=== PATIENT | female | born 1970 | race Asian ===

== ENCOUNTER 2017-01-11 11:25 | Day surgery (SDC) | payer BC ==
[2016-12-30 11:32] VITALS: BMI 21.7
--- NOTE | 2017-01-03 11:10 | HP ---
Admitting History and Physical - Primary Care Physician PCP: Ramesh Darnell - Admission Chief Complaint: Left breast DCIS History of Present Illness: 45 year old premenapausal female who underwent a screening mammogram 11/2015 showing dense changes and calcifications left upper aspect. She underwent left breast stereotactic core 01/2016 showing low to intermediate DCIS. She delayed treatment for the past 6 mos. Breast MRI 09/2016 showed benign enhancing foci 6 month follow up bilaterally and left breast cancer. Bilaterally mammogram 11/2016 Biopsy marker LUOQ with previously calcifications no longer identified but biopsy proven DCIS. History Source: Patient Limitations to Obtaining History: No Limitations - Past Medical History ...LMP: 12/24/16 - Smoking History Smoking history: Never smoked - Alcohol/Substance Use Hx Alcohol Use: No Home Medications - Allergies Allergies/Adverse Reactions: Allergies Allergy/AdvReac Type Severity Reaction Status Date / Time Penicillins Allergy Hives Verified 12/30/16 11:32 - Home Medications Home Medications: Ambulatory Orders NK [No Known Home Medication] 12/30/16 Family Disease History - Family Disease History Family History: Unremarkable Physical Examination Constitutional: Yes: Well Nourished Breast(s): Yes: Other ( small B cup breasts symetrical,ligth scarring left upper outer quadrant , no palpable adnopathy) Problem List - Problems (1) Ductal carcinoma in situ (DCIS) of left breast Code(s): D05.12 - INTRADUCTAL CARCINOMA IN SITU OF LEFT BREAST Assessment/Plan Left breast wide excision mammogram needle localization
[2017-01-11] MEDS ORDERED: MIDAZOLAM HCL 2 MG/2 ML SINGLE DOSE VIAL ONE ×2 (13:59→15:15)
[2017-01-11] MEDS ORDERED: PROPOFOL 20 ML ONE ×2 (14:00→15:14)
[2017-01-11] MEDS ORDERED: LIDOCAINE HCL/PF 2% SDV 5ML VIAL ONE (14:00)
[2017-01-11] MEDS ORDERED: BUPIVACAINE HCL/PF 2.5 MG/ML - 30 ML VIAL IJ ONE (14:41)
[2017-01-11] MEDS ORDERED: LIDOCAINE HCL 1%, 10 MG/ML (50 mL VIAL) IJ ONE (15:02)
[2017-01-11] MEDS ORDERED: LIDOCAINE HCL 1%, 10 MG/ML (20ML VIAL) ONE (15:03)
[2017-01-11] MEDS ORDERED: KETOROLAC TROMETHAMINE 30 MG/1 ML VIAL IVPUSH PRN (15:39)
[2017-01-11] MEDS ORDERED: ONDANSETRON 4 MG/2 ML VIAL IVPUSH PRN (15:39)
[2017-01-11] MEDS ORDERED: BUPIVACAINE HCL/PF 0.25% (2.5MG/ML) 10 ML VIAL IJ ONE (15:41)
[2017-01-11] MEDS ORDERED: DEXTROSE 5%-0.45% SALINE 1,000 ML IV SCH (15:45)
[2017-01-11] MEDS ORDERED: oxyCODONE HCL 5 MG TABLET PO PRN (16:09)
[2017-01-11] MEDS ORDERED: LACTATED RINGERS SOLUTION 1,000 ML IV SCH (16:15)
[2017-01-11 17:46] VITALS: BP 101/60; PULSE 88; TEMP 98.5
--- NOTE | 2017-01-12 09:24 | OP ---
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 PROCEDURE PERFORMED: Left breast partial mastectomy with mammographic needle localization. PRIMARY SURGEON: Humberto Darnell MD AUTOMOTIVE ASSEMBLER: SANJEEV Caraballo ANESTHESIA: General laryngeal mask airway anesthesia. COMPLICATIONS: There were no complications. INDICATIONS: Briefly, the patient is a 45-year-old , premenopausal female of descent. She was found to have some calcifications in the upper outer aspect of the left breast on screening mammography in November 2015 and stereotactic biopsy performed on February 11, 2016, showed intermediate to low-grade DCIS, which was ER-WA positive. The patient was advised on surgery but refused at that time and was eventually seen by myself in the office on 2016. I had her repeat the mammography, which showed no further suspicious findings and the calcifications still had been completely removed. MRI showed no evidence of significant findings. The patient was advised to have a wide excision of the area of her previous stereotactic biopsy and eventually agreed. DESCRIPTION OF PROCEDURE: The patient was brought in for the procedure on January 11, 2017. She underwent the needle localization in Radiology and was brought to the holding area. In the holding area, site verification was made and informed consent was obtained. She was brought into the operating room and laid on the OR table in the supine position. Venodynes were placed on the lower extremities. She did not receive any antibiotics given the small nature of the excision. She was given general laryngeal mask airway anesthesia. The left breast was sterilely prepped and draped in the usual fashion, with the wire prepped in the field. No anais evaluation was performed, given the low-grade nature of the DCIS. One percent lidocaine was given around the needle localization in the upper outer aspect of the left breast, and a curvilinear incision was made in the upper outer aspect of the left breast. Dissection was undertaken around the needle localization, with the breast tissue completely removed from around the wire, with the wire intact in the middle of the specimen. The specimen was oriented with a long lateral suture and a short superior suture, and specimen radiograph showed removal of the clip in question. Hemostasis was achieved. At this point separate margins were taken on the superior, inferior, medial, lateral, deep and anterior aspects, with sutures marking the biopsy cavity sides. The specimens were all sent to Pathology with separate margins. Again, hemostasis was achieved. The wound was copiously irrigated. We then performed a 4 x 3-cm tissue-transfer closure, swinging the breast tissue and closing it primarily with 2-0 plain suture. The skin was then closed using interrupted 3-0 deep dermal Vicryl suture and a running 4-0 subcuticular Biosyn suture. Dermabond was placed over the wound, with a compressive dressing placed over this. The patient tolerated the procedure well, without difficulty. Estimated blood loss was minimal. All sponge and needle counts were correct at the end of the case. The laryngeal mask airway tube was removed at the end of the case, and she was recovered in the postanesthesia care unit and will be discharged home the same day once discharge criteria are met. She is to follow up in the office in 1 week for a formal wound pathology check. HUMBERTO DARNELL M.D. [id number]
--- NOTE | 2017-01-13 16:15 | PATH ---
Surgical Pathology Report Patient Name: YOKASTA FERGUSON [facility]. Rec. #: [id number] /Age/Gender: 1970 (Age: 46) / F Account: [id number] Location: [facility] Taken: 01/11/2017 Received: 01/11/2017 Reported: 01/13/2017 Physicians: Ramesh Darnell M.D. Specimen(s) Received A: LEFT BREAST WIDE EXCISION B: LEFT BREAST LATERAL MARGIN C: LEFT BREAST INFERIOR MARGIN D: LEFT BREAST MEDIAL MARGIN E: LEFT BREAST SUPERIOR MARGIN F: LEFT BREAST DEEP MARGIN G: LEFT BREAST ANTERIOR MARGIN Clinical History DCIS Final Diagnosis A. LEFT BREAST, WIDE EXCISION WITH WIRE LOCALIZATION: BENIGN BREAST TISSUE WITH FIBROCYSTIC CHANGES INCLUDING USUAL DUCTAL HYPERPLASIA (UDH), STROMAL FIBROSIS, DUCTAL DILATATION, AND CYSTIC APOCRINE METAPLASIA. CHANGES CONSISTENT WITH PRIOR BIOPSY SITE PRESENT. NO RESIDUAL DUCTAL CARCINOMA IN SITU (DCIS) IDENTIFIED. B. LEFT BREAST, LATERAL MARGIN, EXCISION: BENIGN BREAST TISSUE. C. LEFT BREAST, INFERIOR MARGIN, EXCISION: BENIGN BREAST TISSUE WITH FIBROCYSTIC CHANGES INCLUDING USUAL DUCTAL HYPERPLASIA (UDH), COLUMNAR CELL CHANGE, STROMAL FIBROSIS, DUCTAL DILATATION, CYSTIC METAPLASIA, AND ASSOCIATED CALCIFICATION. D. LEFT BREAST, MEDIAL MARGIN, EXCISION: BENIGN BREAST TISSUE. E. LEFT BREAST, SUPERIOR MARGIN, EXCISION: BENIGN BREAST TISSUE. F. LEFT BREAST, DEEP MARGIN, EXCISION: BENIGN FIBROFATTY TISSUE AND SKELETAL MUSCLE. G. LEFT BREAST, ANTERIOR MARGIN, EXCISION: BENIGN BREAST TISSUE WITH FIBROCYSTIC CHANGES INCLUDING USUAL DUCTAL HYPERPLASIA (UDH), COLUMNAR CELL CHANGE, ADENOSIS, STROMAL FIBROSIS, DUCTAL DILATATION, AND ASSOCIATED CALCIFICATION. Comment: Also see prior Slide Review [id number]. The Comments DCIS of Breast: Surgical Pathology Cancer Case Summary Based on AJCC/UICC TNM, 7th edition Procedure _X__ Excision with image-guided localization Specimen Laterality _X__ Left Estimated size (extent) of DCIS (greatest dimension using gross and microscopic evaluation): No residual DCIS Number of blocks with DCIS: 0 Number of blocks examined: 21 Nuclear Grade _X__ Grade I (low) _X__ Grade II (intermediate) Necrosis _X__ Not identified Microcalcifications _X__ Present in both DCIS and non-neoplastic tissue Margins _X__ Margin(s) uninvolved by DCIS Distance from closest margin: Cannot be determined. No residual DCIS Pathologic Staging (pTNM) Primary Tumor (pT) _X__ pTis (DCIS): Ductal carcinoma in situ Biomarker Studies Results of ER and NJ studies performed on a prior biopsy (Slide Review [id number]) at [facility] are as follows: ER (clone SP1): 98% nuclear staining with moderate to high intensity (Positive). NJ (clone 1E2) : 98% nuclear staining with strong intensity (Positive). Electronically Signed Larry Mart M.D. Gross Description A. Received in formalin, labeled "left breast wide excision," is a 3.2 x 2.7 x 1.7 cm. carvajal-yellow, irregular, portion of fibroadipose tissue. There is a needle localization separately received within the same container which appears to have detached from the specimen. There is a short suture marking the superior aspect and a long suture marking the lateral aspect, per the surgeon. There is no skin or nipple present. The specimen is inked as follows: superior and lateral blue; inferior green; medial yellow; anterior red; deep black. The specimen is serially sectioned from superior to inferior. Sectioning reveals a focus of hemorrhage surrounded by firm fibrous tissue. No definitive masses are identified. The specimen is entirely and sequentially submitted in 7 cassettes with the superior margin in cassette 1, the inferior margin in cassette 7 and the previous biopsy site in cassette 4. Time to formalin fixation: 10 minutes Total formalin fixation time: Approximately 27 hours. B. Received in formalin labeled "left breast lateral margin," is a 1.5 x 1.0 x 0.6 cm irregular portion of fibroadipose tissue with a suture marking the biopsy cavity side, per the surgeon. The new margin is inked blue and the specimen is serially sectioned. The specimen is entirely submitted in 2 cassettes. C. Received in formalin labeled "left breast inferior margin," is a 2.0 x 1.1 x 0.5 cm irregular portion of fibroadipose tissue with a suture marking the biopsy cavity side, per the surgeon. The new margin is inked blue and the specimen is serially sectioned. The specimen is entirely submitted in 3 cassettes. D. Received in formalin labeled "left breast medial margin," is a 2.1 x 1.8 x 0.9 cm irregular portion of fibroadipose tissue with a suture marking the biopsy cavity side, per the surgeon. The new margin is inked blue and the specimen is serially sectioned. The specimen is entirely submitted in 2 cassettes. E. Received in formalin labeled "left breast superior margin," is a 2.5 x 1.2 x 0.5 cm irregular portion of fibroadipose tissue with a suture marking the biopsy cavity side, per the surgeon. The new margin is inked blue and the specimen is serially sectioned. The specimen is entirely submitted in 2 cassettes. F. Received in formalin labeled "left breast deep margin," is a 1.6 x 1.5 x 0.5 cm irregular portion of fibroadipose tissue with a suture marking the biopsy cavity side, per the surgeon. The new margin is inked blue and the specimen is serially sectioned. The specimen is entirely submitted in 2 cassettes. G. Received in formalin labeled "left breast anterior margin," is a 2.1 x 1.5 x 0.6 cm irregular portion of fibroadipose tissue with a suture marking the biopsy cavity side, per the surgeon. The new margin is inked blue and the specimen is serially sectioned. The specimen is entirely submitted in 3 cassettes. 01/12/2017 [facility]2017
== END 2017-01-11 17:25 | disposition home or self-care (01) ==
LOC: FASU 11:25
PROVIDERS: ATTEND Surgery Surgical Oncology
PROC: 0HBU0ZZ Excision of Left Breast, Open Approach (ICD-10-PCS; principal; 2017-01-11 14:41)
DX: D05.12 Intraductal carcinoma in situ of left breast (principal); N60.82 Other benign mammary dysplasias of left breast; N60.32 Fibrosclerosis of left breast; N60.12 Diffuse cystic mastopathy of left breast; N64.89 Other specified disorders of breast
CPT/HCPCS: 19281; 84703; 88307-TC; 94760